=== PATIENT | female | born 1980 | race Caucasian/White ===

== ENCOUNTER 2021-06-30 20:45 | Emergency (ER) | payer OTHER ==
[2021-06-30 21:16] VITALS: BP 109/73; PULSE 85; TEMP 98.4; BMI 22.4
[2021-06-30 22:25] LABS: BASO % 0.7 % (0-2.0); EOS % 2.5 % (0-4.5); HEMATOCRIT 37.7 % (32.4-45.2); HEMOGLOBIN 13.1 GM/dL (10.7-15.3); LYMPH % 18.8 % (8-40); MCH 30.1 pg (25.7-33.7); MCHC 34.6 g/dl (32.0-36.0); MEAN PLT VOLUME 9.3 fl (7.5-11.1); MONO % 5.3 % (3.8-10.2); NEUT % 72.7 % (42.8-82.8); PLATELET COUNT 313 10^3/uL (134-434); RBC 4.33 M/mm3 (3.60-5.2); RDW 13.2 % (11.6-15.6); WHITE BLOOD COUNT 11.9 K/mm3 (4.0-10.0)
[2021-06-30 22:50] LABS: CREATININE 0.6 mg/dL (0.55-1.3)
[2021-06-30 22:51] LABS: BILIRUBIN,TOTAL 0.3 mg/dL (0.2-1); TOT PROT 7.6 g/dl (6.4-8.2)
== END 2021-07-01 | disposition home or self-care (01) ==
LOC: JER 20:45
DX: O03.9 Complete or unspecified spontaneous abortion without complication (principal)
CPT/HCPCS: 36415; 76817-TC; 80053; 84702; 85025; 86850; 86900; 86901; 99283-25